=== PATIENT | female | born 1995 | race Caucasian/White ===

== ENCOUNTER → 2017-01-25 | Day surgery (SDC) | payer BC ==
--- NOTE | 2017-01-24 09:08 | MH ---
cc: SUZANNA FRANCOIS M.D. DATE OF ADMISSION: 01/25/2017 DATE OF : 1995 ADMITTING DIAGNOSIS: Spontaneous twin miscarriage at 9 to 10 weeks. HISTORY OF PRESENT ILLNESS: The patient is a 21-year-old single white female, para 0, with an LMP of 11/11/2016, EDC of 08/18/2017. She had a positive home test on 12/18/2016. Initial ultrasound was obtained on 01/11/2017 which showed two gestational sacs seen, both were small. No pole was seen. A repeat scan on 01/18/2017 showed no growth or development of the two sacs. She is now admitted for a D&C. PAST MEDICAL HISTORY: PREVIOUS SURGERY: None. MEDICATIONS Vitamins. ALLERGIES: None. TRANSFUSIONS: None. SOCIAL HISTORY: She is single. She works at [employer]. Alcohol, tobacco and drugs: None. PHYSICAL EXAMINATION: GENERAL: This is a well-nourished, well-developed white female. VITAL SIGNS: Stable. HEENT EXAM: Normal. CHEST: Clear. HEART: Regular rate. BREASTS: Symmetrical. ABDOMEN: Benign. PELVIC EXAM: Normal external genitalia and BUS. Vagina is normal. Cervix is normal. Uterus is about 8-10 weeks' size. Adnexa are not palpable. ASSESSMENT: As above. PLAN: She is now admitted for outpatient D&C. While in the office I explained the diagnosis, the treatment, the risks and benefits and the patient would like to proceed. MD HYACINTH Bhardwaj/CROW /8:55 AM /8:59 AM
[~2017-01-25] VITALS: Ht 175.3 cm; Wt 103.4 kg
[~2017-01-25] MED LIST: ACETAMINOPHEN 1000 MG/100 ML VIAL IV SCH; DEXAMETHASONE SOD PHOS 4 MG/ML VIAL ONE; DO NOT ADM ANY ANTICOAGULANT DRUGS XX PRN; FAMOTIDINE 20 MG/2 ML VIAL ONE; INSULIN HUMAN REGULAR 1,000 UNITS/10 ML VIAL SQ PRN; LACTATED RINGER'S 1000 ML IV SCH; METOCLOPRAMIDE HCL 10 MG/2 ML VIAL IV PRN; METOPROLOL TARTRATE 25 MG TAB PO PRN; MIDAZOLAM HCL 2 MG/2 ML VIAL ONE; ONDANSETRON HCL 4 MG/2 ML VIAL IV PUSH ONE; ONDANSETRON HCL 4 MG/2 ML VIAL ONE; OXYTOCIN 10 UNIT/ML AMP ONE; PROPOFOL 200 MG/20 ML AMP IV ONE; SODIUM CHLORID 0.9% 500 ML IV SCH; Z.0.BCPILL PO; ceFAZolin 1,000 MG/NS 100 ML IV SCH
[2017-01-25 06:04] VITALS: BP 122/65; PULSE 76; RESP 16; TEMP 98; O2SAT 99
[2017-01-25 14:20] VITALS: BP 131/76; PULSE 60; RESP 20; TEMP 98; O2SAT 100
--- NOTE | 2017-01-28 04:57 | MP ---
cc: SUZANNA FRANCOIS DATE OF SURGERY: 01/25/2017 PREOPERATIVE DIAGNOSIS: Spontaneous , 8-10 weeks gestation. POSTOPERATIVE DIAGNOSIS Spontaneous , 8-10 weeks gestation. PROCEDURE: Suction and sharp D&C. ANESTHESIA: General LMA ESTIMATED BLOOD LOSS: About 100 cc. FLUIDS: 600 cc Crystalloid OBJECTIVE FINDINGS: Following the induction of adequate general LMA anesthesia the patient was prepped and draped supine on the operating table dorsal supine position, usual sterile fashion with the bladder being drained via in and out catheterization. Examination revealed about 8 week size uterus. A heavy weighted speculum was placed in the posterior fornix of the vagina. The anterior lip of the cervix was grasped with a single-tooth tenaculum. The cervix and uterus sounded to 10 cm. The cervix was easily dilated to a #18 Hanks dilator. A #8 suction curet was passed to remove the POC-like material followed by a small sharp curet to dislodge adherent tissue. The suction catheter was again passed to pickle pumper additional tissue and debris. All instruments were removed. All counts were correct. The uterus contracted down to 6 weeks size. The patient's legs were taken out of the stirrups. She was awakened and taken to the recovery room in good condition. MD HYACINTH Bhardwaj/BERTA /9:08 PM /4:48 AM
== END | disposition home or self-care (01) ==
LOC: HSDC 05:28
PROVIDERS: ATTEND Obstetrics & Gynecology
DX: O02.1 Missed abortion (principal)
CPT/HCPCS: 01965; 59820; 88305; J0131; J0690; J1100; J2250; J2405; J2590; J7120